=== PATIENT | female | born 1945 | race Caucasian/White ===

== ENCOUNTER → 2017-07-10 | Outpatient (CLI) | payer MEDICARE, OTHER ==
[2017-07-08] MEDS: GATIFLOXACIN 0.5% OPHT SOLN 2.5 ML BTL RIGHT EYE SCH (07:44)
[2017-07-09] MEDS: GATIFLOXACIN 0.5% OPHT SOLN 2.5 ML BTL RIGHT EYE SCH (07:41)
[~2017-07-10] VITALS: Ht 157.5 cm; Wt 66.0 kg
[~2017-07-10] MED LIST: ACETYLCHOLINE CHL OPHT SOLN 1:100 2 ML VIAL ONE; BROM0.072 TOPICAL; CHLORHEXIDINE GLUCONATE 2 % 1 PACK (2 CLOTHS) TOPICAL PRN; EPINEPHrine HCL PF/SF (1:1000) 1 MG/ML AMP I-OCULAR ONE; GATI1SOL3 RIGHT EYE; HYALURONIDASE/LIDOCAINE/BUPIVACAINE 5 ML SYR RIGHT EYE ONE; LACTATED RINGER'S 1000 ML IV PRN; METOPROLOL TARTRATE 25 MG TAB PO PRN; PILOCARPINE HCL 2% OPHT SOLN 15 ML BTL ONE; POVIDONE IODINE 5% (ANTISEPSIS KIT) 4 APPLICATIONS EACH NARE PRN; PROP40TA3 PO; PROPARACAINE HCL 0.5% OPHT SOLN 15 ML BTL RIGHT EYE ONE; PROPOFOL 200 MG/20 ML AMP ONE; SIMV10TA PO; SODIUM CHLORID 0.9% 500 ML IV PRN; TETRACAINE 0.5% OPTH SOLN 4 ML BTL ONE; TOBRAMYCIN/DEXAMETHASONE OPTH OINT 3.5 GM TUBE ONE; VISCOAT OPHT IRRIG SOLN 0.75 ML SYRINGE ONE
--- NOTE | 2017-07-10 06:49 | MH ---
cc: Bud Morris MD DATE OF ADMISSION: 07/10/2017 ADMISSION DIAGNOSIS: Cataract, right eye. HISTORY OF PRESENT ILLNESS: This 71-year-old white female is coming through [facility] for the purpose of a lens extraction of the right eye with intraocular lens implant under local anesthesia. She has noticed decreasing visual acuity interfering with her daily activities and elected to have the above procedure. Her best corrected visual acuity in room light is 20/50 -2 in the right eye and 20/40 -1 in the left. PAST MEDICAL HISTORY: The patient has a history of hypertension, rapid heartbeat with palpitations and gastroesophageal reflux disease. PAST SURGICAL HISTORY: Includes a broken right ankle, carpal tunnel procedure, breast reduction, hysterectomy and dentures. DAILY MEDICATIONS: Include: 1. Simvastatin. 2. Propranolol p.r.n. 3. Aloe vera enzyme for the GERD. 4. ZzzQuil p.r.n. 3. Ibuprofen p.r.n. ALLERGIES: SHE HAS NO KNOWN ALLERGIES. SOCIAL HISTORY: She does not smoke and drinks alcohol once in over a year. FAMILY HISTORY: Noncontributory. REVIEW OF SYSTEMS: HEAD: The patient has some dizziness when she has palpitations. She hit her head on the mirror of her car three weeks ago as a recent head injury. Patient denies severe headaches. Wearing dentures. EARS: The patient has discharge from her ears. Patient denies hearing loss, ear pain or ringing in the ears. NOSE: Patient has nasal discharge secondary to allergies. Denies obstruction or frequent colds. MOUTH AND THROAT: Patient denies soreness of the mouth or tongue, bleeding gums, trouble swallowing, changes in voice or sore throat. NECK: Patient denies neck pain or swelling, limitation of neck movement or neck injury. CARDIOPULMONARY SYSTEM: The patient has some dizziness when she has palpitations. She has chronic cough due to postnasal drip. Patient denies shortness of breath, orthopnea, sputum production, hemoptysis, wheezing or light-headedness. She has chest pain secondary to her palpitations when her heart rate gets high. GI SYSTEM: The patient has some acid reflux which can cause nausea and vomiting at times from GERD. Patient denies poor appetite, nausea, vomiting, abdominal pain, ulcers, hemorrhoids or change in bowel habits. SYSTEM: The patient has urinary frequency due to fluid intake and gets up at night to urinate. She denies dysuria or change in urine color. NERVOUS SYSTEM: The patient has some vertigo secondary to the palpitations. Patient denies convulsions, stroke, numbness or weakness. PHYSICAL EXAMINATION: VITAL SIGNS: Blood pressure is 118/78, pulse 84, respirations 20. HEENT: Head is normocephalic, atraumatic. Nose without rhinorrhea. Throat: Clear. NECK: Supple. CHEST: Clear. HEART: Regular rhythm ABDOMEN: Without tenderness. EXTREMITIES: Without edema. NEUROLOGIC: Within normal limits. MENTAL STATUS: Within normal limits. EYE EXAM: The patient's best corrected visual acuity in room light is 20/50 -2 in the right eye and 20/40 -1 in the left. Visual solis are full to confrontation testing. Extraocular muscle exam reveals full versions with orthophoria in the distance and exophoria at near. Pupils are 3 mm, equal, round, and reactive to light, without afferent defect. Anterior segment examination reveals a cyst on the right lower lid. There is dermatochalasis of the eyelid skin. Corneal guttata are present bilaterally. Nuclear sclerotic and cortical cataracts are present, greater in the right eye than the left. Intraocular pressure is 18 in the right eye and 19 in the left by applanation tonometry. Dilated fundus exam revealed sharp discs with cup-to-disc ratio of 0.3 bilaterally. The macula is clear bilaterally. A posterior vitreous detachment is present with floaters in the right eye. There is a choroidal nevus superotemporal arcade at the end of the arcade and it is 1 disk diameter in size. Superotemporally, there is a chorioretinal scar in the background. She has a cyst of the right lower lid. IMPRESSION: 1. Cataracts right eye greater than left. 2. Corneal guttata both eyes. 3. Choroidal nevus right eye. 4. Dermatochalasis. PLAN: Lens extraction of the right eye with intraocular lens implant under local anesthesia through [facility]. The patient has been cleared medically. She has been counseled as to the risks, benefits and alternatives and elected to proceed. I feel that cataract surgery will improve the quality of life and activities of daily living in this patient. MD COBY Hernández/CHON , 02:10 PM , 02:50 PM
[2017-07-10 07:40] VITALS: PULSE 71
[2017-07-10] MEDS: PHENYLEPHRINE HCL 2.5% OPTH SOLN 2 ML BTL RIGHT EYE SCH ×4 (07:41→07:50)
[2017-07-10] MEDS: TROPICAMIDE 1% OPHT SOLN 15 ML BTL RIGHT EYE SCH ×4 (07:41→07:50)
[2017-07-10] MEDS: CYCLOPENTOLATE HCL 1% OPHT SOLN 2 ML BTL RIGHT EYE SCH ×4 (07:41→07:50)
[2017-07-10] MEDS: DICLOFENAC SOD 0.1% OPHT SOLN 2.5 ML BTL RIGHT EYE SCH ×4 (07:41→07:50)
[2017-07-10] MEDS: GATIFLOXACIN 0.5% OPHT SOLN 2.5 ML BTL RIGHT EYE SCH ×2 (07:47→07:50)
[2017-07-10 08:31] VITALS: PULSE 68
[2017-07-10 10:16] VITALS: TEMP 98.4
[2017-07-10 10:40] VITALS: BP 131/85; PULSE 74; RESP 16; O2SAT 97
--- NOTE | 2017-07-10 10:55 | MP ---
cc: Bud Morris MD DATE OF OPERATION: 07/10/2017 PREOPERATIVE DIAGNOSIS: Cataract right eye. POSTOPERATIVE DIAGNOSIS: Cataract right eye. OPERATION: Extracapsular cataract extraction with posterior chamber intraocular lens implant by phacoemulsification, right eye. SURGEON: Bud Morris M.D. ANESTHESIA: Local. COMPLICATIONS: None. INDICATIONS: See history and physical previously dictated. OPERATIVE PROCEDURE: The patient had adequate retrobulbar and eyelid blocks administered in the holding area and was brought to the operating room. The right eye was prepped and draped in the usual sterile ophthalmic manner. A lid speculum was inserted in the right eye. A 4-0 silk bridle suture was placed through the conjunctiva near the superior rectus muscle and it was tagged to the drape. A fornix-based conjunctival flap was prepared spanning approximately 5 mm in width. Hemostasis was obtained with wet-field cautery. A 3.5 mm groove was made 1 mm from the limbus and dissected up to the limbus in the form of a scleral pocket incision. A stab incision was then made at the 2 o'clock position. Viscoelastic was injected into the anterior chamber. The anterior chamber was entered with a 2.75 mm keratome through the scleral pocket incision. A 360 degree continuous curvilinear capsulorrhexis was then performed. Hydrodissection was utilized to divide the nucleus into inner and outer components and to separate the cortex from the capsule. Phacoemulsification was then utilized to remove the nucleus. The outer nuclear layer was removed with irrigation and aspiration and short bursts of ultrasound as necessary. The cortex was removed with the irrigation/aspiration handpiece. The posterior capsule was polished with the capsule polisher. Viscoelastic was injected into the capsular bag. The intraocular lens was inspected and found to be in good condition. The lens utilized was a Gabriel, model number SA60AT with a power of +15.5 Diopters. The lens was inserted into the capsular bag. The viscoelastic in the anterior chamber was then removed with the irrigation-aspiration handpiece. Viscoelastic was also removed from beneath the intraocular lens. The anterior chamber was filled with Miochol-E through the stab incision and pressurized. The wound was checked for leaks at this pressure and normalized pressure and there were none. The 4-0 bridle suture was removed. The conjunctival flap was brought down over the wound and secured with cautery. Pilocarpine 2% eye drops were instilled topically. The lid speculum was removed. TobraDex ophthalmic ointment was applied. The eye was double patched and shielded. The patient tolerated the procedure well and left the operating room in satisfactory condition. MD COBY Hernández/ASHISH , 10:21 AM , 10:54 AM
== END ==
LOC: PHSDC 06:54
PROVIDERS: ATTEND Ophthalmology
DX: H25.811 Combined forms of age-related cataract, right eye (principal); D31.31 Benign neoplasm of right choroid; H02.839 Dermatochalasis of unspecified eye, unspecified eyelid; K21.9 Gastro-esophageal reflux disease without esophagitis; I10 Essential (primary) hypertension; R00.2 Palpitations
CPT/HCPCS: 00142; 66984; J0171; J7040; V2632